=== PATIENT | female | born 1965 | race Caucasian/White ===

== ENCOUNTER 2016-04-21 12:09 | Emergency (ER) | payer OTHER ==
[~2016-04-21] VITALS: Ht 157.5 cm; Wt 86.3 kg
[~2016-04-21 12:09] MED LIST: ADDERALL XR 2525 MG PO; ADDERALL15 MG PO; ADDERALL30 MG PO; ATARAX,VISTARIL25 MG PO; BUDEPRION SR150 MG PO; BUSPAR PO; CATAPRES0.1 MG PO; IBUPROFEN800 MG; LEXAPRO20 MG PO; LORTAB 5-325 M1 EACH PO; MOTRIN600 MG PO; NAPROSYN500 MG PO; NOHOMEMEDS; RISPERDAL0.5 MG PO; RISPERIDONE0.25 MG; SKELAXIN800 MG PO; TORADOL10 MG PO; TYLENOL WITH C1 EACH PO; VENLAFAXINE HC150 MG PO
[2016-04-21] MEDS ORDERED: MOBIC15 MG PO (14:20)
[2016-04-21 15:03] VITALS: BP 124/98
== END 2016-04-21 15:04 | disposition home or self-care (01) ==
LOC: EME 12:09
DX: S50.01XA Contusion of right elbow, initial encounter (principal); M23.91 Unspecified internal derangement of right knee; M23.51 Chronic instability of knee, right knee; W19.XXXA Unspecified fall, initial encounter; F90.9 Attention-deficit hyperactivity disorder, unspecified type
CPT/HCPCS: 73080; 73564; 99281; 99284

== ENCOUNTER → 2016-08-30 | Outpatient (CLI) | payer OTHER ==
[~2016-08-30] MED LIST changes: +MOBIC15 MG PO
== END | disposition home or self-care (01) ==
LOC: CDC 09:38
DX: I10 Essential (primary) hypertension (principal); M25.561 Pain in right knee; M79.4 Hypertrophy of (infrapatellar) fat pad
CPT/HCPCS: 93000

== ENCOUNTER 2016-12-13 20:52 | Emergency (ER) | payer OTHER ==
[~2016-12-13] VITALS: Ht 160 cm; Wt 84.1 kg
[2016-12-13 21:37] LABS: HEMATOCRIT 38.9 % (36.0-46.0); MCH 29.7 PG (29.0-34.0); MCHC 33.4 G/DL (30.0-36.0); MEAN PLAT.VOLUME 10.1 uM^3 (9.5-12.4); PLATELET COUNT 258 K/uL (156-360); RBC DIS.WIDTH-CV 12.7 % (11.8-14.6); RBC DIS.WIDTH-SD 41.6 % (39-53); RED BLOOD COUNT 4.37 M/uL (3.80-5.20); WHITE BLOOD COUNT 8.4 K/uL (4.1-10.2)
[2016-12-13 21:50] LABS: CHLORIDE 107 mEq/L (99-109); POTASSIUM 3.8 mEq/L (3.7-5.4); SODIUM 142 mEq/L (136-147)
[2016-12-13 21:51] LABS: GLUCOSE 95 mg/dL (70-99)
[2016-12-13 21:53] LABS: ANION GAP 9 MEQ/L (2-14)
[2016-12-13 21:55] LABS: GFR ESTIMATE (CALCULATED) > 59 mL/min/
[2016-12-13 21:56] LABS: UREA NITROGEN (BUN) 11 mg/dL (9-23)
[2016-12-13 21:59] LABS: TROP-I INTERPRETATION NEGATIVE; TROPONIN-I < 0.01 ng/mL (0.0-0.30)
[2016-12-13 22:57] LABS: TOTAL BILIRUBIN 0.3 mg/dL (0.0-1.0)
[2016-12-13 22:59] LABS: ALKALINE PHOSPHATASE 138 IU/L (3-129)
[2016-12-13 23:01] LABS: DIRECT BILIRUBIN 0.1 mg/dL (0.0-0.3)
[2016-12-13 23:02] LABS: LIPASE 29 U/L (1.0-51.0)
[2016-12-14 00:02] LABS: TROP-I INTERPRETATION NEGATIVE; TROPONIN-I < 0.01 ng/mL (0.0-0.30)
[2016-12-14] MEDS ORDERED: PROVENTIL HFA6.7 GM IH (00:22)
[2016-12-14] MEDS ORDERED: NAPROSYN500 MG PO (00:27)
[2016-12-14 00:50] VITALS: BP 138/90
== END 2016-12-14 00:51 | disposition home or self-care (01) ==
LOC: EME 20:52
PROVIDERS: Emergency Medicine
DX: R09.1 Pleurisy (principal); R07.9 Chest pain, unspecified; F31.9 Bipolar disorder, unspecified; F90.9 Attention-deficit hyperactivity disorder, unspecified type; F41.9 Anxiety disorder, unspecified; F32.9 Major depressive disorder, single episode, unspecified; Z91.040 Latex allergy status
CPT/HCPCS: 71020; 80048; 80076; 83690; 84484; 85027; 85379; 93005; 99281; 99285

== ENCOUNTER → 2016-12-25 | Outpatient (CLI) | payer OTHER ==
[~2016-12-25] MED LIST changes: +PROVENTIL HFA6.7 GM IH
== END | disposition home or self-care (01) ==
LOC: CDC 11:22
DX: Z01.810 Encounter for preprocedural cardiovascular examination (principal); S83.232A Complex tear of medial meniscus, current injury, left knee, initial encounter; M25.562 Pain in left knee; M67.50 Plica syndrome, unspecified knee
CPT/HCPCS: 93000

== ENCOUNTER → 2017-09-22 | Outpatient (CLI) | payer OTHER | END | disposition home or self-care (01) | LOC: CDC 14:34 | DX: Z01.810 Encounter for preprocedural cardiovascular examination (principal); S83.232A Complex tear of medial meniscus, current injury, left knee, initial encounter; M25.562 Pain in left knee; I10 Essential (primary) hypertension | CPT/HCPCS: 93000 ==